=== PATIENT | female | born 1925 | race Caucasian/White ===

== ENCOUNTER 2017-02-02 09:49 | Emergency (ER) | payer OTHER ==
[~2017-02-02] VITALS: Ht 162.6 cm; Wt 68.2 kg
[~2017-02-02 09:49] MED LIST: ACYC400T2 PO; ATOR10TA65 PO; CALC500T99 PO; LISI-327 PO; METO100T13 PO; OMEP20CA16 PO; WARF4TAB52 PO; WARF5TAB72 PO
[2017-02-02 09:55] VITALS: Ht 162.6 cm; Wt 68.2 kg
[2017-02-02] MEDS ORDERED: SOD CHLORIDE 0.9% 500 ML IV STA (10:07)
[2017-02-02] MEDS ORDERED: ONDANSETRON 4 MG INJ IV ONE (10:30)
[2017-02-02] MEDS ORDERED: morphine 2 MG INJ IV ONE (10:30)
[2017-02-02] MEDS ORDERED: HYOS0.1212 SL (11:35)
[2017-02-02] MEDS ORDERED: ASPI81TA3 PO (11:35)
[2017-02-02] MEDS ORDERED: LORA0.5T PO (11:38)
[2017-02-02] MEDS ORDERED: SOLI5TAB5 PO (11:38)
[2017-02-02] MEDS ORDERED: GABA100C14 PO (11:38)
[2017-02-02] MEDS ORDERED: HYDR-902 PO (11:38)
[2017-02-02] MEDS ORDERED: ZOLP5TAB PO (11:38)
[2017-02-02] MEDS ORDERED: DEXL30CA2 PO (11:38)
[2017-02-02] MEDS ORDERED: LISI10TA2 PO (11:38)
[2017-02-02] MEDS ORDERED: POLY17PO6 PO (11:38)
--- NOTE | 2017-02-02 11:38 | RADRPT ---
PROCEDURE: CT Lumbar Spine. CLINICAL INDICATION: Trauma, fall, back pain TECHNIQUE: The study was performed on a multidetector CT scanner. Spiral axial 1 mm images were o btained through the lumbar spine and reformatted at 2.5 mm slice thickness. Sagittal and coronal ref ormations were created from the raw axial data. The images were reviewed on a PACS workstation. The administered radiation dose was CTDI vol = 34.61 mGy, DLP = 1099.5 mGy-cm. One or more the following dose reduction techniques were utilized: Automated exposure control, adjus tment of the mA and / or kV according to patient's size, or use of iterative reconstruction techniqu e. COMPARISON: No prior studies are available for comparison. FINDINGS: There is diffuse osteopenia. There is a compression fracture of L2 vertebral body which appears acu te with loss of approximate 1/3 height of the vertebral body. There is no retropulsion of the fract ured vertebral body into the spinal canal. There is no extension of the fracture into the posterior elements seen. There is mild paraspinous soft tissue swelling. There is approximate 5 mm anterior displacement L4 vertebral body on L5 consistent with degenerative changes. There is approximate 3 m m anterior displacement of L5 vertebral body and S1 consistent with degenerative changes. Dual chamber cardiac pacemaker leads. Calcification in thoracoabdominal aorta and region of aortic v alve and the splenic and bilateral iliac arteries. Cholecystectomy apparent. T12-L1: The disc and neuroforamina are unremarkable. L1-L2: The disc and neuroforamina are unremarkable. L2-L3: There is disk space narrowing, mild vertebral body osteophyte formation, mild vacuum disk phe nomenon, diffuse disk bulge and mild bilateral foraminal stenosis. L3-L4: There is disk space narrowing, vacuum disk phenomenon, mild vertebral body osteophyte formati on, facet and ligamentum flavum hypertrophy and mild bilateral foraminal stenosis. L4-L5: There is vacuum disk phenomenon, mild disk space narrowing, facet and ligamentum flavum hyper trophy and moderate left foraminal stenosis and moderate right foraminal stenosis. L5-S1: There is disk space narrowing and mild right foraminal stenosis at moderate left foraminal st enosis. Degenerative changes at sacroiliac joints. IMPRESSION: Acute compression fracture of L2 vertebral body. Degenerative changes. Please see above. RPTAT: HJES .Jacky Pratt MD, MD Date Time Electronically viewed and signed by .Jacky Pratt MD, MD on 02/02/2017 11:38 .S/
--- NOTE | 2017-02-02 11:41 | RADRPT ---
PROCEDURE: CT Pelvis without contrast. CLINICAL INDICATION: Trauma, fall, pain TECHNIQUE: CT scan of the pelvis without contrast was performed on a multidetector high-resolution CT scanner. The patient was scanned without intravenous contrast. Coronal and sagittal reformatted images were obtained from the axial source images. Images were reviewed on a high-resolution PACS w orkstation. The total exam CTDI equals 15.6 mGy and the total exam DLP equals 549.57 mGy-cm. One or more the following dose reduction techniques were utilized: Automated exposure control, adjus tment of the mA/ or kV according to patient's size, or use of iterative reconstruction technique. COMPARISON: None. FINDINGS: Calcification in abdominal aorta and iliac and femoral arteries. Degenerative changes in lumbar spi ne. Degenerative changes at sacroiliac joints. Small umbilical hernia containing fat only. Divert icula in sigmoid and descending colon. There is an unremarkable appendix. Mild osteoarthrosis at h ips. No acute fracture or dislocation is seen. IMPRESSION: No acute fracture seen. Please see above. RPTAT: HJES .Jacky Pratt MD, Date Time Electronically viewed and signed by .Jacky Pratt MD, on 02/02/2017 11:41 .S/
[2017-02-02 12:04] VITALS: BP 138/65; PULSE 74; RESP 19; TEMP 98
--- NOTE | 2017-02-02 12:35 | ERA ---
ER Documentation Chief Complaint Date/Time DATE: 02/02/17 TIME: 12:25 Chief Complaint MECHANICAL FALL; BACK PAIN SOB CHEST PAIN - PT WITH PACEMAKER HPI 89 yo F no pmhx who presents to ED with low back pain s/p fall 2 days ago in the night. Patient w/ mechanical fall onto bottom. No head injury. Now with persistent pain to lower back not improved with Pheba at home. Trouble walking but not using walker like she is supposed to. No fever, dysuria, urgency or frequency. No neck pain ROS All systems reviewed and are negative except as per history of present illness. Medications Home Meds Reported Medications Hydrocodone/Acetaminophen (Pheba 10-325 Tablet) 1 Each Tablet, 1 TAB PO, TAB 02/02/17 Polyethylene Glycol* (Miralax*) 17 Gm Powd.pack, 17 GM PO DAILY, #30 PACKET 02/02/17 Dexlansoprazole (Dexilant) 30 Mg Cap., 30 MG PO DAILY, #30 CAP 02/02/17 Zolpidem Tartrate* (Ambien*) 5 Mg Tablet, 5 MG PO QHS Y for INSOMNIA, #30 TAB 02/02/17 Lorazepam* (Lorazepam*) 0.5 Mg Tablet, 0.5 MG PO HS Y for ANXIETY, TAB 02/02/17 Lisinopril* (Lisinopril*) 10 Mg Tablet, 10 MG PO DAILY, #30 TAB 02/02/17 Solifenacin* (Vesicare*) 5 Mg Tablet, 5 MG PO DAILY, TAB 02/02/17 Gabapentin* (Gabapentin*) 100 Mg Capsule, 100 MG PO DAILY, #90 CAP 02/02/17 Aspirin* (Aspirin* Chew) 81 Mg Tab.chew, 81 MG PO DAILY, TAB.CHEW 02/02/17 Hyoscyamine Sulfate* (Hyoscyamine Sulfate*) 0.125 Mg Tab.subl, 0.125 MG SL Q4H Y for INTESTINAL SPASMS/CRAMPING, TAB 02/02/17 Metoprolol Succinate* (Toprol XL*) 100 Mg Tab.sr.24h, 100 MG PO DAILY, #30 TAB 12/19/15 Omeprazole* (Omeprazole*) 20 Mg Capsule., 20 MG PO DAILY 04/04/11 Discontinued Reported Medications Calcium Carbonate ([id number]) 1 Tab Tablet, 1 TAB PO BID, TAB 12/19/15 Atorvastatin Calcium (Atorvastatin Calcium) 10 Mg Tablet, 10 MG PO QHS, #30 TAB 12/19/15 Warfarin Sodium* (Coumadin*) 5 Mg Tablet, 5 MG PO SATURDAY AND SATURDAY, TAB 12/19/15 Warfarin Sodium* (Warfarin Sodium*) 4 Mg Tablet, 4 MG PO DAILY EXCEPT SAT&SAT, TAB TAKE 4 MG BY MOUTH DAILY EXCEPT SATURDAY AND SATURDAY 12/19/15 Lisinopril-Hydrochlorothiazide (Lisinopril-HCTZ) 1 Tab Tablet, 1 TAB PO DAILY 01/14/13 Acyclovir* (Acyclovir*) 400 Mg Tablet, 400 MG PO DAILY 04/04/11 Allergies Allergies: Coded Allergies: No Known Allergy (Verified , 01/14/13) PMhx/Soc History of Surgery: Yes (CHOLECYSTECTOMY/RT EYE CATARACT SX /PACEMAKER ) Anesthesia Reaction: No Hx Neurological Disorder: No Hx Respiratory Disorders: No Hx Cardiac Disorders: Yes (HTN) Hx Psychiatric Problems: No Hx Miscellaneous Medical Probl: Yes (ARTHRITIS) Hx Alcohol Use: Yes (OCCASSIONAL) Hx Substance Use: No Hx Tobacco Use: No Smoking Status: Never smoker FmHx Family History: No diabetes Physical Exam Vitals Vital Signs Date Time Temp Pulse Resp B/P Pulse Ox O2 Delivery O2 Flow Rate FiO2 02/02/17 09:55 98.0 84 19 142/70 100 Physical Exam Const: well appearing but slightly uncomfortable Head: Atraumatic Eyes: Normal Conjunctiva ENT: Normal External Ears, Nose and Mouth. Neck: Full range of motion..~ No meningismus. No midline TTp with full active and passive rom Resp: Clear to auscultation bilaterally Cardio: Regular rate and rhythm, no murmurs Abd: Soft, non tender, non distended. Normal bowel sounds Back: Soft tissue ttp to paraspinal lumbar muscles, no midline ttp or deformities. Skin: No petechiae or rashes Back: No midline or flank tenderness Ext: No cyanosis, or edema Neur: Awake and alert Psych: Normal Mood and Affect Results 24 hrs Current Medications Medications (Trade) Dose Ordered Sig/Gonzales Route PRN Reason Start Time Stop Time Status Last Admin Dose Admin Sodium Chloride (NS) 500 ml @ 500 mls/hr Q1H STAT IV 02/02/17 10:07 02/02/17 11:06 DC 02/02/17 10:25 Morphine Sulfate (morphine) 4 mg ONCE ONCE IV 02/02/17 10:30 02/02/17 10:31 DC 02/02/17 10:25 Ondansetron HCl (Zofran Inj) 4 mg ONCE ONCE IV 02/02/17 10:30 02/02/17 10:31 DC 02/02/17 10:26 Procedures/MDM IMAGING CT l spine IMPRESSION: Acute compression fracture of L2 vertebral body. Degenerative changes. Please see above. RPTAT: HJES CT pelvis: no fracture per radiology MDM: The patient had a clear mechanical fall without head injury. No e/o syncope. CT imaging is appropriate. No e/o cauda equina or cord compression ER course: Patient given pain medication. Ct showing compression fracture. Pain well controlled and now ambulatory with a walker. Outpatient appropriate. Patient with vicodin script given today by PMD. Outpatient PT/OT and pmd followup appropriate. Case management to help obtain walker for home. Discharge home Meds: None given as has vicodin at home. Departure Diagnosis: Primary Impression: Lumbar compression fracture Qualified Code: S32.000A - Lumbar compression fracture, closed, initial encounter Condition: GERBER Anderson MD Feb 02, 2017 12:35
== END 2017-02-02 13:49 | disposition home or self-care (01) ==
LOC: E/R 09:49
DX: S32.020A Wedge compression fracture of second lumbar vertebra, initial encounter for closed fracture (principal); I10 Essential (primary) hypertension; W01.0XXA Fall on same level from slipping, tripping and stumbling without subsequent striking against object, initial encounter; Y92.9 Unspecified place or not applicable; Z95.0 Presence of cardiac pacemaker; Z79.82 Long term (current) use of aspirin; Z79.01 Long term (current) use of anticoagulants
CPT/HCPCS: 72131; 72192; J2270; J2405; J7040; 96374; 96375